=== PATIENT | female | born 1965 | race Caucasian/White ===

== ENCOUNTER 2021-01-19 17:49 | Emergency (ER) | payer SELFPAY ==
[~2021-01-19] VITALS: Ht 154.9 cm; Wt 81.8 kg
[2021-01-19 18:27] VITALS: TEMP 98.2
[2021-01-19 19:40] VITALS: BP 159/102; PULSE 92
== END 2021-01-19 19:40 | disposition home or self-care (01) ==
LOC: COL.ER 17:49
DX: B35.4 Tinea corporis (principal); F17.200 Nicotine dependence, unspecified, uncomplicated

== ENCOUNTER 2022-07-05 20:59 | Emergency (ER) | payer MEDICAID ==
[~2022-07-05] VITALS: Ht 154.9 cm; Wt 81.8 kg
[2022-07-05 21:04] VITALS: TEMP 98
[2022-07-05 22:12] VITALS: BP 134/87; PULSE 86
== END 2022-07-05 22:12 | disposition home or self-care (01) ==
LOC: COL.ER 20:59
DX: M25.512 Pain in left shoulder (principal); Z28.311 Partially vaccinated for COVID-19

== ENCOUNTER 2024-04-06 20:20 | Emergency (ER) | payer MEDICAID ==
[~2024-04-06] VITALS: Ht 154.9 cm; Wt 85.9 kg
[2024-04-06 20:20] VITALS: TEMP 97.8
[~2024-04-06 20:20] MED LIST: FLEXERIL5 MG PO; MOTRIN 600600 MG/TAB PO
[2024-04-06] MEDS ORDERED: Albuterol/Ipratropium 3 MG-0.5 MG/3 ML Neb Soln IH ONE ×2 (20:45→21:30)
[2024-04-06] MEDS ORDERED: methylPREDNISolone Sod Succ 125 MG/2 ML VIAL IV ONE (20:45)
[2024-04-06 20:50] LABS: BASO # 0.1 K/mm3 (0.0-0.2); BASO % 0.7 % (0.0-2.0); EOS # 0.2 K/mm3 (0.0-0.7); EOS % 2.3 % (0.0-4.0); GRAN # 3.2 K/mm3 (1.4-6.5); GRAN % 45.6 % (42.2-75.2); HEMATOCRIT 43.8 % (37.0-47.0); HEMOGLOBIN 14.5 g/dl (12.5-16.0); LYMPH # 2.9 K/mm3 (1.2-3.4); LYMPH % 41.8 % (20.0-51.0); MEAN CELL VOLUME 95 fl (80.0-100.0); MEAN CORPUSCULAR HEMOGLOBIN 32 pg (27-31); MEAN CORPUSCULAR HGB CONC 33 g/dl (33.0-37.0); MEAN PLATELET VOLUME 11.1 fl (7.4-10.4); MONO # 0.7 K/mm3 (0.1-0.6); MONO % 9.3 % (1.7-9.3); PLATELET COUNT 203 K/mm3 (130-400); REDCELL DISTRIBUTION WIDTH-CV 12.7 % (11.5-14.5)
[2024-04-06 20:56] LABS: PROTHROMBIN TIME 10.7 SECONDS (9.7-12.8)
[2024-04-06 20:58] LABS: PARTIAL THROMBOPLASTIN TIME 30.6 SECONDS (26.0-37.0)
[2024-04-06 21:07] LABS: ALANINE AMINOTRANSFERASE 39 U/L (0-55); ALBUMIN 3.5 g/dL (3.5-5.0); ALKALINE PHOSPHATASE 112 U/L (40-150); ANION GAP 13 mmol/L (7-16); AST,SGOT 19 U/L (5-34); BILIRUBIN,TOTAL 0.2 mg/dL (0.2-1.2); BLOOD UREA NITROGEN 14 mg/dL (10-20); CALCIUM 10.3 mg/dL (8.4-10.2); CHLORIDE 108 mEq/L (98-107); CREATININE, serum 0.77 mg/dL (0.57-1.11); GLUCOSE 97 mg/dL (70-99); MAGNESIUM 1.9 mg/dL (1.6-2.6); POTASSIUM 4.3 mEq/L (3.5-4.5); SODIUM 143 mEq/L (136-145)
[2024-04-06 21:15] LABS: TROPONIN-I < 0.010 ng/mL (0.00-0.033)
[2024-04-06] MEDS ORDERED: FLOVENT DI100 MCG/Ac IH (21:52)
[2024-04-06] MEDS ORDERED: PREDNISONE20 MG PO (21:52)
[2024-04-06] MEDS ORDERED: guaiFENesin/Codeine Oral Soln 100-10 MG/5 ML 5 ML UD PO ONE (22:00)
[2024-04-06 22:04] VITALS: BP 124/64; PULSE 95
== END 2024-04-06 22:20 | disposition home or self-care (01) ==
LOC: COL.ER 20:20
PROVIDERS: Family Medicine
DX: J45.909 Unspecified asthma, uncomplicated (principal); F17.210 Nicotine dependence, cigarettes, uncomplicated
CPT/HCPCS: J2919